=== PATIENT | female | born 1985 | race Caucasian/White ===

== ENCOUNTER 2017-04-23 11:35 | Emergency (ER) | payer OTHER ==
--- NOTE | ~2017-04-23 | CR253 ---
[facility] Service of [facility] & [facility] RADIOLOGY TEXT RESULTS PATIENT: ANTONY BEJARANO LOCATION: [facility] : 83 UNIT #: [id number] AGE: [address]: Diamond Mccurdy SEX: F ORDER DR: [id number] [facility] [address] [place], [place] [address] [id number] E MR#: [id number] #: [id number] NAME: ANTONY BEJARANO : 1985 SEX: F STUDY DATE/TIME: 04/23/2017 12:34 UNIT: [facility] ROOM: STUDY DESCRIPTION: CR Tibia and Fibula 2 Views Rt Attending Physician: Diamond Mccurdy P.A.-C. Ordering Physician: Diamond Mccurdy P.A.-C. Primary Care Physician: No Primary Care Physician MEDICAL IMAGING REPORT This report is preliminary unless electronic signature is present EXAM Right tibia and fibula, 3 views, 04/23/2017. COMPARISON Prior study of 01/02/2007. HISTORY Fall with puncture injury from nail today. FINDINGS There is an old distal fibular internal fixation screw plate, which is intact, and no fracture is seen. There is a soft tissue defect over the anterior solorzano, and there is a small radiopaque subcutaneous foreign body along the inferior margin of the apparent puncture. It is about 1.5 mm in size. Again, there is no fracture. Dictated by... Eddie Amin M.D. THIS IS AN ELECTRONICALLY VERIFIED REPORT Eddie Amin M.D. at 04/24/2017 3:52 PM PERI/selena TD: 04/23/2017 17:12 JOB #: [id number] MEDICAL IMAGING REPORT Page 1 of 1 COPY
[~2017-04-23 11:35] MED LIST: ADVIL200 M1 PO; BACTRIM DS TABL1 TA1 PO; BAYER ASPIRIN325 M1 PO; CIPRO PO; HYDROCODON-ACE1 EAC9 PO; IBUPROFEN600 MG PO; LITHIUM CARBON450 MG PO; NO MEDICATIONS; ULTRAM PO; VOLTAREN50 MG PO
== END 2017-04-23 13:32 | disposition home or self-care (01) ==
LOC: CED 11:35
DX: S81.811A Laceration without foreign body, right lower leg, initial encounter (principal); E11.9 Type 2 diabetes mellitus without complications; F31.9 Bipolar disorder, unspecified; Z23 Encounter for immunization; Z88.0 Allergy status to penicillin; W18.00XA Striking against unspecified object with subsequent fall, initial encounter; Y92.009 Unspecified place in unspecified non-institutional (private) residence as the place of occurrence of the external cause
CPT/HCPCS: 12002; 73590; 90471; 90715; 99283